=== PATIENT | male | born 1965 | race Caucasian/White ===

== ENCOUNTER 2019-05-24 10:51 | Emergency (ER) | payer MEDICARE, OTHER ==
--- NOTE | 2019-05-24 11:44 | ED Physician Documentation ---
PD HPI URI - Stated complaint Stated Complaint: CONGESTION/COUGH - Chief complaint Chief Complaint: Resp - History obtained from History obtained from: Patient - History of Present Illness Timing - onset: How many weeks ago (1) Timing duration: Weeks (over a week) Timing details: Gradual onset, Still present (worse the past 1-2 days, with increased cough and dyspnea) Associated symptoms: Nasal congestion, Productive cough (now for 1-2 days). No: Fever, Sore throat, Swollen nodes, Chest pain, Dyspnea Contributing factors: No: Sick contact, COPD / asthma Similar symptoms before: Has not had sx before Recently seen: Not recently seen Review of Systems Constitutional: reports: Myalgias. denies: Fever, Chills Nose: reports: Rhinorrhea / runny nose, Congestion (for over a week) Throat: denies: Sore throat Cardiac: denies: Chest pain / pressure Respiratory: reports: Dyspnea, Cough (worsening recently) GI: denies: Nausea, Vomiting, Diarrhea Skin: denies: Rash, Lesions PD PAST MEDICAL HISTORY - Past Medical History Cardiovascular: None Respiratory: None Endocrine/Autoimmune: None Psych: Panic attacks Derm: Psoriasis - Past Surgical History Past Surgical History: No - Present Medications Home Medications: Ambulatory Orders Medication Instructions Recorded Confirmed Adalimumab [Humira] 01/15/16 Methotrexate 2.5 mg 01/15/16 Sulfamethoxazole/Trimethoprim 1 each PO BID #14 tablet 01/15/16 [Sulfamethoxazole-Tmp Ds Tablet] predniSONE [Prednisone] 20 mg PO DAILY #10 tablet 01/20/16 Benzonatate [Tessalon Perle] 100 - 200 mg PO TID PRN #30 capsule 05/24/19 Doxycycline Hyclate 100 mg PO BID #14 capsule 05/24/19 dexAMETHasone [Decadron] 4 mg PO DAILY #5 tablet 05/24/19 guaiFENesin/CODEINE [Robitussin AC] 10 ml PO Q6H PRN #240 ml 05/24/19 - Allergies Allergies/Adverse Reactions: Allergies Allergy/AdvReac Type Severity Reaction Status Date / Time acetaminophen [From Percocet] AdvReac Nausea Verified 01/20/16 11:43 oxycodone HCl * AdvReac Nausea Verified 01/20/16 11:43 [From Percocet] - Social History Does the pt smoke?: No Smoking Status: Former smoker Does the pt drink ETOH?: Yes Does the pt have substance abuse?: No - Immunizations Immunizations are current?: Yes PD ED PE NORMAL - Vitals Vital signs reviewed: Yes - General General: Alert and oriented X 3, No acute distress, Well developed/nourished - HEENT HEENT: Ears normal, Pharynx benign - Neck Neck: Supple, no meningeal sign, No adenopathy - Cardiac Cardiac: RRR, No murmur - Respiratory Respiratory: Clear bilaterally - Derm Derm: Normal color, Warm and dry - Neuro Neuro: Alert and oriented X 3, No motor deficit, Normal speech Results - Vitals Vitals: Vital Signs - 24 hr 05/24/19 05/24/19 10:58 12:11 Temperature 36.9 C 36.6 C Heart Rate 98 82 Respiratory 18 16 Rate Blood Pressure 136/96 H 151/101 H O2 Saturation 98 95 Oxygen O2 Source Room air PD MEDICAL DECISION MAKING - ED course Complexity details: considered differential (URI symptoms for over a week and now increased cough and some sputum. ), d/w patient Departure - Departure Disposition: 01 Home, Self Care Clinical Impression: Upper respiratory infection Qualifiers: URI type: unspecified URI Qualified Code(s): J06.9 - Acute upper respiratory infection, unspecified Condition: Stable Record reviewed to determine appropriate education?: Yes Instructions: ED Upper Resp Infec Abx Tx Prescriptions: Benzonatate [Tessalon Perle] 100 - 200 mg PO TID PRN #30 capsule PRN Reason: Cough dexAMETHasone [Decadron] 4 mg PO DAILY #5 tablet Doxycycline Hyclate 100 mg PO BID #14 capsule guaiFENesin/CODEINE [Robitussin AC] 10 ml PO Q6H PRN #240 ml PRN Reason: Cough Comments: Commonly these are viral illnesses though with the duration of yours and getting worse, there is possibility of bacterial. We can treated with antibiotics but also want to treat the process of the inflammation in the airways with Decadron steroid daily. Add Tessalon if needed for cough suppression. To that you can add cough medicine if needed as well. Stay well-hydrated. Tylenol ibuprofen for fever or chills. I would anticipate improvement over the next several days and recheck if not improved improved well over that timeframe or better by a week. Discharge Date/Time: 05/24/19 12:13
[2019-05-24 12:12] VITALS: BP 151/101
== END 2019-05-24 12:13 | disposition home or self-care (01) ==
LOC: ED 10:51
DX: J06.9 Acute upper respiratory infection, unspecified (principal); Z87.891 Personal history of nicotine dependence
CPT/HCPCS: 99284

== ENCOUNTER 2020-07-12 15:32 | Emergency (ER) | payer MEDICARE, OTHER ==
--- NOTE | 2020-07-12 16:28 | ED Physician Documentation ---
PD HPI HEADACHE - Stated complaint Stated Complaint: DIZZY - Chief complaint Chief Complaint: Neuro - History obtained from History obtained from: Patient - Additional information Additional information: 55-year-old gentleman has been having worsening vertigo for about a week. It is worse when he changes positions or lays on his right side. Not associated with double vision, new headaches (noting he has chronic recurrent headaches ever since the goal for). He denies weakness, numbness, tingling of the extremities. No nausea. Review of Systems Constitutional: denies: Fever, Chills Ears: denies: Loss of hearing, Ear pain, Drainage/discharge Nose: denies: Rhinorrhea / runny nose, Congestion Throat: denies: Sore throat Cardiac: denies: Chest pain / pressure, Palpitations Respiratory: denies: Dyspnea, Cough PD PAST MEDICAL HISTORY - Past Medical History Cardiovascular: None Respiratory: None Endocrine/Autoimmune: None Psych: Panic attacks Derm: Psoriasis - Past Surgical History Past Surgical History: No - Present Medications Home Medications: Ambulatory Orders Medication Instructions Recorded Confirmed Adalimumab [Humira] 01/15/16 Methotrexate 2.5 mg 01/15/16 Meclizine HCl [Antivert] 25 mg PO QID PRN #20 tablet 07/12/20 - Allergies Allergies/Adverse Reactions: Allergies Allergy/AdvReac Type Severity Reaction Status Date / Time acetaminophen [From Percocet] AdvReac Nausea Verified 07/12/20 15:42 oxycodone HCl * AdvReac Nausea Verified 07/12/20 15:42 [From Percocet] - Social History Does the pt smoke?: No Smoking Status: Former smoker Does the pt drink ETOH?: Yes Does the pt have substance abuse?: No - Immunizations Immunizations are current?: Yes PD ED PE NORMAL - Vitals Vital signs reviewed: Yes - General General: Alert and oriented X 3, No acute distress - HEENT HEENT: PERRL, EOMI, Other (mild nystagmus R gaze) - Neck Neck: Supple, no meningeal sign, No bony TTP, No bruit - Neuro Neuro: Alert and oriented X 3, quality assurance supervisor 2-12 intact, No motor deficit, No sensory deficit, Normal speech, Other (normal finger-nose and urcy-xr-tycg testing both sides) Eye Opening: Spontaneous Motor: Obeys Commands Verbal: Oriented GCS Score: 15 Results - Vitals Vitals: Vital Signs - 24 hr 07/12/20 07/12/20 15:40 16:48 Temperature 36.3 C L 36.6 C Heart Rate 90 88 Respiratory 20 18 Rate Blood Pressure 156/100 H 150/80 H O2 Saturation 98 100 Oxygen O2 Source Room air PD MEDICAL DECISION MAKING - ED course ED course: 55-year-old gentleman with what seems like peripheral vertigo. He has a history of autoimmune disease and is middle-aged so it CT was done without pertinent positive findings. He did find relief with an Daniel maneuver here. Departure - Departure Disposition: 01 Home, Self Care Clinical Impression: Vertigo Condition: Good Record reviewed to determine appropriate education?: Yes Instructions: ED Vertigo Unspecified Prescriptions: Meclizine HCl [Antivert] 25 mg PO QID PRN #20 tablet PRN Reason: Dizziness Comments: You can do the Daniel maneuver as shown for symptoms, return if worsening or if you develop new neurologic symptoms, such as weakness, numbness, tingling, severe headache different than your usual. Follow-up with your primary care physician, next available appointment. If symptoms are persistent, consider ear nose and throat referral. CAT scan of your head was normal today.
[2020-07-12 16:49] VITALS: BP 150/80
--- NOTE | 2020-07-12 16:51 | CT Report ---
PROCEDURE: HEAD WO INDICATIONS: vertigo TECHNIQUE: Noncontrast 4.5 mm thick angled axial sections acquired from the foramen magnum to the vertex. For r adiation dose reduction, the following was used: automated exposure control, adjustment of mA and/or kV according to patient size. COMPARISON: None. FINDINGS: Image quality: Excellent. CSF spaces: Basal cisterns are patent. No extra-axial fluid collections. Ventricles are normal in size and shape. Brain: No midline shift. No intracranial masses or hemorrhage. Yeager-white matter interface is norm al. Skull and face: Calvarium and visualized facial bones are intact, without suspicious lesions. Sinuses: Visualized sinuses and mastoids are clear. IMPRESSION: No acute intracranial disease process. Reviewed by: Consuelo Tafoya MD, PhD on 07/12/2020 4:49 PM [facility] Approved by: Consuelo Tafoya MD, PhD on 07/12/2020 4:49 PM [facility] Station ID: [id number]
== END 2020-07-12 17:07 | disposition home or self-care (01) ==
LOC: ED 15:32
DX: R42 Dizziness and giddiness (principal); Z87.891 Personal history of nicotine dependence
CPT/HCPCS: 70450; 99283; 99284

== ENCOUNTER 2020-09-15 09:57 | Emergency (ER) | payer MEDICARE, OTHER ==
[2020-09-15 10:05] VITALS: BP 172/122
--- NOTE | 2020-09-15 11:43 | ED Physician Documentation ---
History of Present Illness - Stated complaint Stated Complaint: RT FT SWELLING - Chief complaint Chief Complaint: Ext Problem - Additonal information Additional information: 55-year-old male presents to the emergency department for evaluation of right foot pain. This gentleman has a history of psoriasis and ran out of his methotrexate about 3 months ago. He also took his last dose of Enbrel earlier this week. He reports that he bought new shoes and after wearing them he noticed that the area of psoriasis on the sole of his foot had begun to breakdown. He is concerned that there may be infection. No fevers or swelling. Scant drainage. He does report that when he was in the [place] more than 10 years ago he did develop a foot infection in this area that was initially treated with steroids but ultimately resulted in significant foot infection causing septicemia requiring long-term hospitalization. This gentleman at this time is very hesitant to resume steroids. Review of Systems Constitutional: reports: Reviewed and negative Eyes: reports: Reviewed and negative Ears: reports: Reviewed and negative Nose: reports: Reviewed and negative Throat: reports: Reviewed and negative Cardiac: reports: Reviewed and negative Respiratory: reports: Reviewed and negative : reports: Reviewed and negative Skin: reports: Lesions (sole of foot) Musculoskeletal: reports: Reviewed and negative Neurologic: reports: Reviewed and negative PD PAST MEDICAL HISTORY - Past Medical History Past Medical History: Yes Cardiovascular: None Respiratory: None Endocrine/Autoimmune: None Psych: Panic attacks Derm: Psoriasis - Past Surgical History Past Surgical History: No - Present Medications Home Medications: Ambulatory Orders Medication Instructions Recorded Confirmed Adalimumab [Humira] 01/15/16 Methotrexate 2.5 mg 01/15/16 Meclizine HCl [Antivert] 25 mg PO QID PRN #20 tablet 07/12/20 - Allergies Allergies/Adverse Reactions: Allergies Allergy/AdvReac Type Severity Reaction Status Date / Time acetaminophen [From Percocet] AdvReac Nausea Verified 09/15/20 10:05 oxycodone HCl * AdvReac Nausea Verified 09/15/20 10:05 [From Percocet] - Social History Does the pt smoke?: No Smoking Status: Never smoker Does the pt drink ETOH?: Yes Does the pt have substance abuse?: No - Immunizations Immunizations are current?: Yes - POLST Patient has POLST: No PD ED PE EXPANDED - General General: Alert, No acute distress, Well developed/nourished - Extremities Extremities: Right foot (Sole of the foot with a 3 x 4 area of psoriatic plaque that is generally dry and cracked however there are a few areas of superficial skin breakdown. No surrounding erythema milky drainage. Normal gait.) Results - Vitals Vitals: Vital Signs - 24 hr 09/15/20 10:01 Temperature 36.4 C L Heart Rate 102 H Respiratory 20 Rate Blood Pressure 172/122 H O2 Saturation 97 Oxygen O2 Source Room air PD MEDICAL DECISION MAKING - ED course Complexity details: reviewed results, re-evaluated patient, considered differential, d/w patient ED course: 55-year-old male presents the emergency department for evaluation of a psoriatic plaque on the sole of his right foot that has broken down as he recently wore new shoes. He is concerned he may be developing an infection. On exam there is minimal skin breakdown without any findings consistent with cellulitis. There is no erythema, milky drainage or fevers. He does have a normal gait in his shoes. We discussed that the skin breakdown is likely due to the new shoes. I advised abstinence from the shoes. It is important that he resume his methotrexate and Enbrel. He is working with the [employer] to get this completed. I did offer a course of steroids to treat the sore irises flare however the patient declined this given his history of infection after steroids in the past. Patient was advised to return to the emergency department for any new or emergent worsening concerns Departure - Departure Disposition: 01 Home, Self Care Clinical Impression: Psoriasis, Right foot pain Condition: Stable Record reviewed to determine appropriate education?: Yes Comments: Kana the pain in your right foot is due to the psoriasis plaque that is broken down with the new shoes. I do recommend that you avoid the new shoes. I would like you to apply the steroid ointments that you have to the bottom of your foot and wear a nonstick pad. As we discussed right now the foot does not appear infected. However, if it develops redness, milky drainage or you have fevers or red streaking please return immediately to the ER for a second look. It is very important that you continue to [place]-up with the physicians [place] [facility] [place] methotrex[place] and Enbrel renewed.
== END 2020-09-15 11:57 | disposition home or self-care (01) ==
LOC: ED 09:57
DX: L40.0 Psoriasis vulgaris (principal); M79.671 Pain in right foot
CPT/HCPCS: 99281; 99283

== ENCOUNTER 2021-08-08 10:46 | Emergency (ER) | payer MEDICARE, OTHER ==
[2021-08-08] MEDS ORDERED: iohexoL-300 100 ML VIAL ONE (16:07)
--- NOTE | 2021-08-08 16:52 | CT Report ---
PROCEDURE: HEAD WO INDICATIONS: vertigo TECHNIQUE: Noncontrast 4.5 mm thick angled axial sections acquired from the foramen magnum to the vertex. For r adiation dose reduction, the following was used: automated exposure control, adjustment of mA and/or kV according to patient size. COMPARISON: None. FINDINGS: Image quality: Excellent. CSF spaces: Basal cisterns are patent. No extra-axial fluid collections. Ventricles are normal in size and shape. Brain: No midline shift. No intracranial masses or hemorrhage. Yeager-white matter interface is norm al. Skull and face: Calvarium and visualized facial bones are intact, without suspicious lesions. Sinuses: Bilateral maxillary sinus retention cysts. Visualized sinuses and mastoids are otherwise cl ear. IMPRESSION: No acute intracranial abnormality. Reviewed by: Iona Goodrich MD on 08/08/2021 4:50 PM PST Approved by: Iona Goodrich MD on 08/08/2021 4:50 PM PST Station ID: [id number]
--- NOTE | 2021-08-08 16:57 | ED Physician Documentation ---
History of Present Illness - Stated complaint Stated Complaint: LIGHT HEADED/LOW BACK PX - Additonal information Additional information: 56-year-old male presents the emergency department for evaluation of intermittent vertigo. States that for a few years he often has vertigo when he turns his head suddenly or changes positions but it has become increasingly frequent over the last 2 weeks. He has had some nausea but no vomiting. No falls or trauma. He is also reporting about 4 to 5 days of right-sided low back pain with radiation into the groin and thigh. He has also noticed that he has some right- sided inguinal lymphadenopathy. He is not having any dysuria urgency or frequency. Denies that he is having testicular pain scrotal pain or hematuria. No pertinent past surgical history. He has a history of hypertension however he has not yet medicated for it. He q uit smoking about 1 year ago. A portion of this chart may be seen in our downtime medical records Review of Systems Constitutional: denies: Fever, Chills Eyes: reports: Reviewed and negative Ears: reports: Reviewed and negative Nose: reports: Reviewed and negative Throat: reports: Reviewed and negative Cardiac: reports: Reviewed and negative Respiratory: reports: Reviewed and negative GI: denies: Abdominal Pain, Nausea, Vomiting : reports: Reviewed and negative Skin: denies: Rash, Lesions Musculoskeletal: reports: Back pain Neurologic: reports: Reviewed and negative PD PAST MEDICAL HISTORY - Past Medical History Cardiovascular: None Respiratory: None Endocrine/Autoimmune: None Psych: Panic attacks Derm: Psoriasis - Past Surgical History Past Surgical History: No - Present Medications Home Medications: Ambulatory Orders Medication Instructions Recorded Confirmed Adalimumab [Humira] 01/15/16 Methotrexate [Methotrexate Sodium] 2.5 mg 01/15/16 Meclizine HCl [Antivert] 25 mg PO QID PRN #20 tablet 07/12/20 - Allergies Allergies/Adverse Reactions: Allergies Allergy/AdvReac Type Severity Reaction Status Date / Time acetaminophen [From Percocet] AdvReac Nausea Verified 09/15/20 10:05 oxycodone HCl * AdvReac Nausea Verified 09/15/20 10:05 [From Percocet] - Social History Does the pt smoke?: No Smoking Status: Never smoker Does the pt drink ETOH?: Yes Does the pt have substance abuse?: No - Immunizations Immunizations are current?: Yes - POLST Patient has POLST: No PD ED PE NORMAL - General General: Alert and oriented X 3, No acute distress, Well developed/nourished - HEENT HEENT: Atraumatic, Ears normal, Moist mucous membranes, Pharynx benign - Neck Neck: Supple, no meningeal sign, No adenopathy - Cardiac Cardiac: RRR, No murmur, No gallop - Respiratory Respiratory: No respiratory distress, Clear bilaterally - Abdomen Abdomen: Normal bowel sounds, Soft, Non tender - Male Male : Other (Mild right inguinal lymphadenopathy. No swelling or erythema. Normal male exam otherwise. No testicular tenderness. Positive cremasteric bilaterally) - Back Back: No CVA TTP, No spinal TTP, Other (Right low paraspinous tenderness. Mild right flank tenderness without guarding or rebound.) - Derm Derm: Normal color, Warm and dry, No rash - Extremities Extremities: No deformity Results - Vitals Vitals: Oxygen O2 Source Room air - Labs Labs: Laboratory Tests 08/08/21 10:53 POC Whole Bld Glucose 116 H - Rads (name of study) CT head Radiology: Final report received (No acute intracranial abnormality.) CT abd pelvis Radiology: Final report received (Wall thickening of the urinary bladder, concerning for cystitis. Suspected recently passed right bladder calculus. Hepatic steatosis.) PD MEDICAL DECISION MAKING - ED course Complexity details: reviewed results, re-evaluated patient, considered differential, d/w patient, d/w family ED course: 56-year-old male presents emergency department for evaluation of 2 concerns 1. His intermittent vertigo for the last few years that is gotten progressively worse over the last 2 weeks. Often associated with bending over and turning his head. He has a normal neurological and cerebellar exam negative hints exam. CT imaging of the head is unremarkable. His history is most suggestive of a peripheral etiology. We did discuss the Daniel maneuver to be used at home as well as occasional meclizine. Patient did have screening labs completed. Unremarkable CBC and electrolytes. His urine does not show signs of infection. Screening EKG was nonischemic and high-sensitivity troponin was negative. His orthostatic vital signs were also unremarkable. He had also reported a few days of right-sided low back pain. No falls or trauma denied any urinary symptoms. Pain did seem most dominant in the flank. A CT of his abdomen suggests wall thickening of the urinary bladder concerning for cystitis as well as suspicion that he is recently passed a right-sided bladder calculus. Because his urine showed no signs of infection we will defer any antibiotics. I discussed with the patient that the bladder calculus and kidney stones are likely cause of his flank pain. I have advised ibuprofen for analgesia and discomfort. This gentleman is noted to be modestly hypertensive here in the emergency department. He is scheduled with a primary care provider on the fifth of this month to establish care and have his hypertension addressed. Emergent return precautions were otherwise discussed. A portion of this chart may be seen in the downtime medical record. This may include EKG, vital signs, screening labs as well as imaging and nursing notes Departure - Departure Disposition: Home, Self Care Clinical Impression: Bladder calculus BPPV (benign paroxysmal positional vertigo) Qualifiers: Laterality: right Qualified Code(s): H81.11 - Benign paroxysmal vertigo, right ear Hypertension Qualifiers: Hypertension type: primary hypertension Qualified Code(s): I10 - Essential (primary) hypertension Condition: Stable Record reviewed to determine appropriate education?: Yes Comments: Kana falcon were seen in the emergency department today for worsening vertigo or sensation of dizziness especially when you turn your head. As we discussed at the bedside I suspect that you may have otoliths or crystals in your ear that have gotten out of whack. Please research the Dnaiel maneuver and use this at home. You may also find use of meclizine and [id number] medication helpful in managing your vertigo. You do have a modestly elevated blood pressure here in the emergency department. Please discuss this with your primary care doctor when you see them on the . Your screening blood count and electrolytes were all essentially normal but you likely need to be started on antihypertensive medications. You would also reported right-sided low back pain. The CT of your abdomen suggest that you have recently Plast a bladder stone. This likely originated from the kidneys. However there is no signs of infection in your kidneys or swelling in the kidneys. Your primary care doctor should make a referral for you to a urologist to have this evaluated in the long-term. However to help manage your pain and discomfort I do recommend 600 mg of ibuprofen with food 2-3 times a day. 500 mg of Tylenol can also be used. If any point you develop fevers, have suddenly severe or different abdominal pain, cannot urinate normally then please return immediately to the ER for a second evaluation.
--- NOTE | 2021-08-08 17:02 | CT Report ---
PROCEDURE: Abdomen/Pelvis W INDICATIONS: R flank pain with inguinal LAD CONTRAST: IV CONTRAST: Isovue 300 ml: 100 PO CONTRAST: *NO PO CONTRAST TECHNIQUE: After the administration of intravenous contrast, 5 mm thick sections acquired from the diaphragms to the symphysis. 5 mm thick coronal and sagittal reformats were acquired. For radiation dose reducti on, the following was used: automated exposure control, adjustment of mA and/or kV according to rupa ent size. COMPARISON: None. FINDINGS: Inferior chest: No focal consolidation, pleural effusion, or pneumothorax. No cardiomegaly or perica rdial effusion. Gallbladder: The gallbladder is distended with a smooth wall. Biliary tree: No intra-or extrahepatic biliary ductal dilatation. Liver: Decreased attenuation liver, compatible hepatic steatosis. Normal contrast enhancement. Spleen: Normal size and morphology is seen. Pancreas: Normal morphology without masses or inflammatory changes. Adrenals: Normal size without masses. Kidneys: Normal size and morphology. No contour deforming solid masses or evidence of obstructive uro pippa. Vasculature: No evidence of aneurysm or other significant vascular pathology. Lymphatic system: No pathologic enlargement by size criteria. Bowel: No intestinal obstruction. Normal appendix. Peritoneum/Retroperitoneum: No free intraperitoneal gas or large collection. Urinary bladder: Wall thickening of the urinary bladder. Punctate calculus in the right aspect of the urinary bladder (3-76). Pelvic organs: No significant abnormality. Bones/soft tissues: No significant abnormality. IMPRESSION: 1.Wall thickening of the urinary bladder, concerning for cystitis. 2.Suspected, recently passed right bladder calculus. 3.Hepatic steatosis. Reviewed by: Michele Georges MD on 08/08/2021 5:01 PM [facility] Approved by: Michele Georges MD on 08/08/2021 5:01 PM PST Station ID: [id number]
[2021-08-08 17:24] VITALS: BP 163/114
[2021-08-08 20:33] LABS: ALBUMIN 4.7 g/dL (3.2-5.5); ALBUMIN/GLOBULIN RATIO 1.6 (1.0-2.2); BILIRUBIN,TOTAL 0.9 mg/dL (0.2-1.0); CALCIUM 9.6 mg/dL (8.5-10.3); CREATININE 1.1 mg/dL (0.6-1.2); POTASSIUM 3.8 mmol/L (3.5-5.0); TOTAL PROTEIN 7.7 g/dL (6.7-8.2)
[2021-08-08 20:34] LABS: BASOPHILS % (AUTO) 0.4 %; EOSINOPHILS # (AUTO) 0.1 10^3/uL (0.0-0.7); EOSINOPHILS % (AUTO) 0.8 %; HCT - HEMATOCRIT 46.1 % (42.0-52.0); HGB - HEMOGLOBIN 16.2 g/dL (14.0-18.0); LYMPHOCYTES # (AUTO) 1.3 10^3/uL (1.5-3.5); MEAN CORPUSCULAR HEMOGLOBIN 30.5 pg (27.0-31.0); MEAN CORPUSCULAR HGB CONC 35.1 g/dL (32.0-36.0); MEAN CORPUSCULAR VOLUME 86.7 fL (80.0-94.0); MEAN PLATELET VOLUME 9.9 fL (7.4-11.4); MONOCYTES # (AUTO) 1.1 10^3/uL (0.0-1.0); MONOCYTES % (AUTO) 10.4 %; NEUTROPHILS # (AUTO) 8.1 10^3/uL (1.5-6.6); NEUTROPHILS % (AUTO) 76.2 %; PLT - PLATELET COUNT 314 10^3/uL (130-450); RED BLOOD COUNT 5.32 10^6/uL (4.70-6.10); RED CELL DISTRIBUTION WIDTH 12.6 % (12.0-15.0); WHITE BLOOD COUNT 10.6 x10^3/uL (4.8-10.8)
[2021-08-08 20:35] LABS: BILIRUBIN,URINE NEGATIVE (NEGATIVE); CLARITY,URINE CLEAR (CLEAR); GLUCOSE, URINE (UA) NEGATIVE (NEGATIVE); KETONES,URINE (UA) NEGATIVE (NEGATIVE); LEUKOCYTE ESTERASE, URINE NEGATIVE (NEGATIVE); NITRITE,URINE NEGATIVE (NEGATIVE); OCCULT BLOOD,URINE NEGATIVE (NEGATIVE); PH,URINE 6.5 PH (5.0-7.5); PROTEIN,URINE NEGATIVE (NEGATIVE); UROBILINOGEN,URINE 0.2 (NORMAL) E.U./dL (NORMAL)
[2021-08-08] MEDS ORDERED: iohexoL-300 100 ML VIAL IVP ONE (21:56)
== END 2021-08-08 17:23 | disposition home or self-care (01) ==
LOC: ED 10:46
DX: H81.11 Benign paroxysmal vertigo, right ear (principal); N21.0 Calculus in bladder; I10 Essential (primary) hypertension; R59.0 Localized enlarged lymph nodes; Z87.891 Personal history of nicotine dependence
CPT/HCPCS: 36415; 70450; 74177; 80053; 81003; 83690; 84484; 85025; 93005; 99283; 99284; Q9967; 81001; 87086

== ENCOUNTER 2022-01-27 20:01 | Emergency (ER) | payer MEDICARE, OTHER ==
[2022-01-27 20:14] VITALS: BP 122/109
[2022-01-27] MEDS ORDERED: NIRMATRELVIR/RITONAVIR PREPACK PO STA (21:40)
--- NOTE | 2022-01-27 21:41 | ED Physician Documentation ---
History of Present Illness - Stated complaint Stated Complaint: C+ - Chief complaint Chief Complaint: Resp - Additonal information Additional information: 56-year-old male presents the emergency department for evaluation of generalized fatigue feeling lightheaded and general myalgias. Symptoms began about 5 hours ago No fever or cough. Denies dyspnea or chest pain. He is fully vaccinated and boosted for COVID-19 but given his symptoms that occurred just a few hours ago he did do a rapid test for COVID-19 and it was positive. He presents to the ER for further evaluation. Past medical history most significant for psoriasis for which she is on a biologic as well as hypertension. No history of coronary artery disease, renal failure or strokes. He appears remarkably well without any distress Review of Systems Constitutional: reports: Myalgias, Fatigue. denies: Fever Eyes: reports: Reviewed and negative Nose: reports: Reviewed and negative Throat: reports: Reviewed and negative Cardiac: reports: Reviewed and negative Respiratory: reports: Reviewed and negative GI: reports: Reviewed and negative : reports: Reviewed and negative PD PAST MEDICAL HISTORY - Past Medical History Cardiovascular: None Respiratory: None Endocrine/Autoimmune: None Psych: Panic attacks Derm: Psoriasis - Past Surgical History Past Surgical History: No - Present Medications Home Medications: Ambulatory Orders Medication Instructions Recorded Confirmed Adalimumab [Humira] 01/15/16 Methotrexate [Methotrexate Sodium] 2.5 mg 01/15/16 Meclizine HCl [Antivert] 25 mg PO QID PRN #20 tablet 07/12/20 - Allergies Allergies/Adverse Reactions: Allergies Allergy/AdvReac Type Severity Reaction Status Date / Time acetaminophen [From Percocet] AdvReac Nausea Verified 01/27/22 20:14 oxycodone HCl * AdvReac Nausea Verified 01/27/22 20:14 [From Percocet] - Social History Does the pt smoke?: No Smoking Status: Never smoker Does the pt drink ETOH?: Yes Does the pt have substance abuse?: No - Immunizations Immunizations are current?: Yes - POLST Patient has POLST: No PD ED PE NORMAL - General General: Alert and oriented X 3, No acute distress, Well developed/nourished - HEENT HEENT: Atraumatic, Moist mucous membranes, Pharynx benign - Neck Neck: Supple, no meningeal sign, No adenopathy, No JVD - Cardiac Cardiac: RRR, No murmur, No gallop - Respiratory Respiratory: No respiratory distress, Clear bilaterally - Back Back: No CVA TTP, No spinal TTP - Derm Derm: Normal color, Warm and dry, No rash - Extremities Extremities: No deformity, No tenderness to palpate, Normal ROM s pain - Neuro Neuro: Alert and oriented X 3 Eye Opening: Spontaneous Motor: Obeys Commands Verbal: Oriented GCS Score: 15 Results - Vitals Vitals: Vital Signs - 24 hr 01/27/22 20:10 Temperature 37.3 C Heart Rate 102 H Respiratory 16 Rate Blood Pressure 122/109 H O2 Saturation 96 Oxygen O2 Source Room air PD MEDICAL DECISION MAKING - ED course Complexity details: considered differential, d/w patient ED course: This is a very well-appearing 56-year-old male that has a history of hypertension and psoriatic arthritis for which she is on an biologic. He began having myalgias fatigue and feeling lightheaded about 5 hours ago. Rapid test for COVID was positive at home. On presentation he has unremarkable cardiopulmonary auscultation without hypoxia. Given the very short duration of symptoms will defer imaging. However given his past medical history he is considered higher risk for adverse outcomes in the setting of COVID-19. We did discuss the emergency use authorization for antiviral/pack Slo-Bid therapy in the setting of COVID-19 and the patient does wish to proceed. He is dispensed the paxlovid from the emergency department. Advised to maintain quarantine for the next week. Emergent return precautions were discussed for worsening symptoms Departure - Departure Disposition: 01 Home, Self Care Clinical Impression: COVID-19 Condition: Stable Record reviewed to determine appropriate education?: Yes Comments: Kana falcon are seen today in the emergency department for COVID 19 infection. You began getting symptoms just a few hours ago. With your history of the psoriasis and high blood pressure you would be considered higher risk for adverse outcomes in the setting of COVID-19 therefore we are starting you on oral antiviral therapy called Paxlovid You need to continue to isolate for the next week. You can take Tylenol or ibuprofen [id number] for discomfort. If you develop severe chest pain respiratory distress fevers higher than 102 or uncontrolled vomiting then please return immediately to the ER for second evaluation
== END 2022-01-27 21:53 | disposition home or self-care (01) ==
LOC: ED 20:01
DX: U07.1 COVID-19 (principal); I10 Essential (primary) hypertension
CPT/HCPCS: 99282; J3490

== ENCOUNTER 2022-07-16 09:50 | Emergency (ER) | payer MEDICARE, OTHER ==
[2022-07-16 10:17] VITALS: BP 143/97
[2022-07-16] MEDS ORDERED: HYDROmorphone 1 MG/ML CARPUJECT IM STA (11:07)
[2022-07-16] MEDS ORDERED: diazePAM 5 MG TABLET PO STA (11:08)
[2022-07-16] MEDS ORDERED: ONDANSETRON ODT 4 MG TABLET TL STA (11:09)
--- NOTE | 2022-07-16 11:18 | ED Physician Documentation ---
History of Present Illness - Stated complaint Stated Complaint: LOWER BACK PX - Chief complaint Chief Complaint: Ext Problem - Additonal information Additional information: 57-year-old male presents the emergency department for evaluation of severe low back pain and reported right-sided sciatica. States he has had severe back pain that started without any stressors or trauma about 1 week ago. Was seen on the at [facility]. At that time was diagnosed with sciatica and started on a 5-day course of steroids, methocarbamol ibuprofen. He is scheduled to have a Zoom appointment with his PCP on Sunday despite taking the medications he feels the pain is intolerable has been unable to do the prescribed exercises. No fevers. No saddle anesthesia loss of bowel or bladder function. Denies any history of cancer or IVDA. appears very uncomfortable with any movement Review of Systems Constitutional: denies: Fever, Chills Eyes: reports: Reviewed and negative Nose: reports: Reviewed and negative Throat: reports: Reviewed and negative Cardiac: reports: Reviewed and negative Respiratory: reports: Reviewed and negative GI: reports: Reviewed and negative : reports: Reviewed and negative Musculoskeletal: reports: Back pain, Extremity pain PD PAST MEDICAL HISTORY - Past Medical History Cardiovascular: None Respiratory: None Endocrine/Autoimmune: None Psych: Panic attacks Derm: Psoriasis - Past Surgical History Past Surgical History: No - Present Medications Home Medications: Ambulatory Orders Medication Instructions Recorded Confirmed Adalimumab [Humira] 01/15/16 Methotrexate [Methotrexate Sodium] 2.5 mg 01/15/16 Meclizine HCl [Antivert] 25 mg PO QID PRN #20 tablet 07/12/20 oxyCODONE [Roxicodone] 5 mg PO BID #10 tablet 07/16/22 - Allergies Allergies/Adverse Reactions: Allergies Allergy/AdvReac Type Severity Reaction Status Date / Time acetaminophen [From Percocet] AdvReac Nausea Verified 01/27/22 20:14 oxycodone HCl * AdvReac Nausea Verified 01/27/22 20:14 [From Percocet] - Social History Does the pt smoke?: No Smoking Status: Never smoker Does the pt drink ETOH?: Yes Does the pt have substance abuse?: No - Immunizations Immunizations are current?: Yes - POLST Patient has POLST: No PD ED PE NORMAL - General General: Alert and oriented X 3. No: No acute distress (appears in pain with any movenet, comfortable at rest) - HEENT HEENT: Atraumatic, Moist mucous membranes - Neck Neck: Supple, no meningeal sign, No adenopathy - Cardiac Cardiac: RRR, No murmur - Respiratory Respiratory: No respiratory distress, Clear bilaterally - Abdomen Abdomen: Normal bowel sounds, Soft - Back Back: No CVA TTP. No: No spinal TTP (Midline lower lumbar spinous tenderness though no crepitus or step-off. Reduced forward flexion secondary to pain. Pain is worse with movement especially on the right side. Positive straight leg. Patient reports numbness of the right leg from the hip down. 2+ DP pulse. Motor strength 5/5) - Derm Derm: Normal color, Warm and dry - Extremities Extremities: No deformity, No tenderness to palpate, Normal ROM s pain - Neuro Neuro: Alert and oriented X 3, clinical data management manager 2-12 intact Eye Opening: Spontaneous Motor: Obeys Commands Verbal: Oriented GCS Score: 15 Results - Vitals Vitals: Vital Signs - 24 hr 07/16/22 10:14 Temperature 37.2 C Heart Rate 115 H Respiratory 18 Rate Blood Pressure 143/97 H O2 Saturation 92 Oxygen O2 Source Room air - Rads (name of study) lumbar CT Radiology: Final report received (Multilevel degenerative disc and facet disease. No fracture. L5-S1 disc protrusion associated with right S1 nerve compression. Further assessment with nonemergent MRI recommended. Nonobstructing left renal calculus) PD MEDICAL DECISION MAKING - ED course Complexity details: reviewed old records, reviewed results, re-evaluated patient, considered differential, d/w patient ED course: 57-year-old male presents to the emergency department for evaluation of persistent midline lower lumbar pain with radiation down the right leg and associated numbness. Was seen at [facility] 3 days ago for similar and started on a 5-day course of steroids as well as methocarbamol and ibuprofen. Despite this he has uncontrolled pain. On exam he has tenderness with any movement though with the exception of age there were no red flags. Given that his pain had not improved with conservative measures initiated at [place] I did do a CT of the lumbar spine. We do note degenerative disc disease as well as disc protrusion at L5-S1 with compression of the S1 nerve root consistent with the findings of sciatica. Incidental note made of a left nephrolithiasis. Here in the emergency department I did administer the patient a one-time dose of Dilaudid as well as some Valium and on Reevaluation he is moving more comfortably. I discussed with him that it is important he continue with the stretching and physical therapy exercises prescribed. I am dispensing him with a walker in order to assist with his ADLs. A very limited prescription of oxycodone is being sent to the [facility] in [place]. Patient is scheduled to see his PCP via Zoom visit on Sunday. I making a recommendation for follow- up MRI and physical therapy. If conservative care measures fail to improve he may benefit from referral to back pain specialist. Red flag and emergent return precautions otherwise discussed I am prescribing a short course of short-acting opioid pain medication for this patient. I have reviewed the patients [employer] and no concerning findings were noted. I have discussed that the opioids are for short term therapy only, and will not be refilled from the ED. Departure - Departure Disposition: 01 Home, Self Care Clinical Impression: Nephrolithiasis Low back pain Qualifiers: Chronicity: acute Back pain laterality: midline Sciatica presence: with sciatica Sciatica laterality: sciatica of right side Qualified Code(s): M54.41 - Lumbago with sciatica, right side Sciatica Qualifiers: Laterality: right Qualified Code(s): M54.31 - Sciatica, right side Condition: Stable Instructions: ED Sciatica Prescriptions: oxyCODONE [Roxicodone] 5 mg PO BID #10 tablet Comments: He came to the emergency department for persistent pain in your lower lumbar spine with numbness in your right leg. [facility] had diagnosed you with sciatica and I agree with that assessment. We did do a CT of your lumbar spine today. It does show multilevel degenerative disc disease as well as L5/S1 disc protrusion and compression of the right sciatic nerve. There was an incidental finding meaning of a nonobstructing kidney stone in the left kidney. In order to help manage your pain and I encourage you to continue with the ibuprofen and the methocarbamol. Being up and walking, even with the use of a walker can help reduce pain and spasm that may be may be making your symptoms worse. So I encourage you to be as active as possible with a walker. I have sent a limited amount of oxycodone to the [facility] in [place]. Please do not miss a follow-up appointment with your doctor on Sunday. You would benefit from an MRI for further evaluation of your lumbar spine. You may also benefit from referral to physical therapy. If these care measures do not improve your symptoms your primary doctor may need to make a referral for you to a back pain specialist. I am prescribing a short course of narcotic pain medication for you. These are potentially dangerous and addictive medications that should be used carefully. These medications may constipate you. Take an krmq-mek-mtjhhsa stool softener (docusate) twice daily with plenty of water while taking these medications. If you go 24 hours without a bowel movement, take gkti-qlo-fieqoge miralax, per package instructions. Do not drink or drive while taking these medications. If you received narcotic or sedating medications while in the emergency department, do not drive for 24 hours. Store this medication in a safe, secure place and out of reach of children. It is a violation of federal law to give or sell this medication to another person or to use in a manner other than prescribed. The ED will not refill narcotic prescriptions, including prescriptions lost or stolen. To dispose of unwanted medications: 1. [facility] at [address] in [place] has a medication drop box. They accept prescription medications (in pill form) Sunday through Sunday 9:00 a.m. to 5:00 p.m. 2. The [facility] accepts prescription medications (in pill form only) for disposal year round. Call for more information. 3. Contact the [facility] for the next [facility] sponsored prescription drug collection event. , [phone], or [phone]; Note that many narcotic pain relievers also contain Tylenol/acetaminophen. Please ensure that your total dose of acetaminophen from all sources does not exceed 3 g (3000 mg) per day.
--- NOTE | 2022-07-16 11:58 | CT Report ---
PROCEDURE: LUMBAR SPINE WO INDICATIONS: midline low back pain; ? sciatica TECHNIQUE: Noncontrast 3 mm thick sections acquired from the T12 level to the sacrum. Sagittal and coronal refo rmats were constructed. For radiation dose reduction, the following was used: automated exposure co ntrol, adjustment of mA and/or kV according to patient size. COMPARISON: None. FINDINGS: Image quality: Excellent. Bones: There is normal bony alignment. No acute vertebral body compression fractures. No suspiciou s lytic or blastic bony lesions. Central spinal caliber is of normal overall caliber. No pars defec ts. Multilevel disc space narrowing is noted. Skeletal. Right paracentral disc protrusion at L5-S1, causing probable right S1 nerve root compression. Soft tissues: No retroperitoneal masses or hematomas. Visualized aorta is normal in caliber. 3 mm n onobstructing calculus within the inferior pole left kidney. IMPRESSION: 1. Multilevel degenerative disc and facet disease. 2. No fracture. 3. L5-S1 disc protrusion associated with right S1 nerve root compression. Further assessment with non emergent outpatient follow-up MRI is recommended. 4. Nonobstructing left renal calculus. Reviewed by: Iona Goodrich MD on 07/16/2022 10:57 AM [facility] Approved by: Iona Goodrich MD on 07/16/2022 10:57 AM [facility] Station ID: [id number]
== END 2022-07-16 13:51 | disposition home or self-care (01) ==
LOC: ED 09:50
DX: M54.41 Lumbago with sciatica, right side (principal); M51.17 Intervertebral disc disorders with radiculopathy, lumbosacral region; N20.0 Calculus of kidney
CPT/HCPCS: 72131; 96372; 99283; 99284; A9270; J1170; Q0162

== ENCOUNTER → 2022-07-19 | Outpatient (CLI) | payer MEDICARE, OTHER | END | disposition critical access hospital (66) | LOC: EMS 07:04 | DX: M54.50 Low back pain, unspecified (principal); M53.3 Sacrococcygeal disorders, not elsewhere classified; R26.2 Difficulty in walking, not elsewhere classified | CPT/HCPCS: A0425; A0427 ==